=== PATIENT | female | born 1990 | race Caucasian/White ===

== ENCOUNTER 2016-07-24 12:49 | Emergency (ER) | payer BC, OTHER ==
[~2016-07-24] VITALS: Ht 154.9 cm; Wt 66.5 kg
[2016-07-24 12:53] VITALS: Ht 154.9 cm; Wt 66.5 kg
[2016-07-24] MEDS ORDERED: ALBU18002 INH (13:01)
[2016-07-24] MEDS ORDERED: [UNRECOGNIZED DRUG - REMARK] (13:01)
[2016-07-24] MEDS ORDERED: SODIUM CHLORIDE 0.9% 1000ML 500 ML IV STA (13:41)
--- NOTE | 2016-07-24 13:43 | EMERGENCY ROOM VISIT NOTE ---
History Report prepared by Joana: Alex Quispe Under the Supervision of: Dr. Nolberto Barobza M.D. First contact with patient: 13:34 Chief Complaint: ILLNESS Stated Complaint: ARM/HANDS/FINGERS TINGLING,CHEST PAIN History of Present Illness The patient is a 25 year old female who presents to the Emergency Room with complaints constant numbness in her bilateral hands. She rates her numbness as moderate in severity. She states that it worsens the more she uses her hands. A couple of hours ago, the patient was at work when her symptoms began. She was putting items away when she noticed the numbness. She is also having pain down each arm as well. She states that the symptoms are worse on the left than the right. She is experiencing right sided neck pain. This has never happened to her before. She notes that she was fine last night when she went to bed. She denies any leg or feet numbness. She denies any recent trauma or history of neck injury. She has a history of Sciatica in her left leg. She was placed on a muscle relaxer last month for her Sciatica as well. She denies any chance for . Source of History: patient Onset: a couple of hour ago Position: hand (bilateral) Symptom Intensity: moderate Quality: numbness Timing: constant Modifying Factors (Worsening): movement Associated Symptoms: + neck pain Note: She is experiencing tingling in both arms and hands as well. She denies any symptoms in her lower extremities. Review of Systems See HPI for pertinent positives & negatives. A total of 10 systems reviewed and were otherwise negative. Past Medical & Surgical Medical Problems: (1) Asthma, Unspecified (2) Esophageal Reflux Surgical Problems: (1) No significant past surgical history Family History Cancer Diabetes mellitus Hypertension Kidney disease Kidney stones Social History Smoking Status: Never Smoker Alcohol Use: occasionally Drug Use: none Marital Status: single Housing Status: lives with family Occupation Status: employed Current/Historical Medications Scheduled PRN Albuterol Sulfate (Proair Respiclick), 1 PUFF INH Q4 PRN for SOB/Wheezing Miscellaneous Medications [Unk Muscle Spasm Med] Allergies Coded Allergies: No Known Allergies (Unverified , 07/24/16) Physical Exam Vital Signs Date Time Temp Pulse Resp B/P Pulse Ox O2 Delivery O2 Flow Rate FiO2 07/24/16 18:04 81 18 101/68 97 07/24/16 16:49 77 18 117/78 95 Room Air 07/24/16 14:30 36.8 80 117/53 99 07/24/16 12:53 36.9 90 18 115/75 98 Room Air Physical Exam GENERAL: Patient is in no acute distress. HEENT: No acute trauma, normocephalic atraumatic, mucous membranes moist, no nasal congestion, no scleral icterus. NECK: No stridor, no adenopathy, no meningismus, trachea is midline. Pain with bending of the neck to the left and right. LUNGS: Clear to auscultation bilaterally, no wheeze, no rhonchi, breath sounds equal. HEART: Without murmurs gallops or rubs, regular rate and rhythm. ABDOMEN: Soft, nontender, bowel sounds positive, no hernias, no peritonitis. EXTREMITIES: No cyanosis or edema, full range of motion of all the joints without pain or difficulty, no signs for acute trauma. NEUROLOGIC: Oriented x 3, no acute motor or sensory deficits, no focal weakness. No pronator drift. No cerebellar dysfunction. SKIN: No rash, no jaundice, no diaphoresis. Medical Decision & Procedures ER Provider Diagnostic Interpretation: Radiology results are stated below per my review and radiologist interpretation: CHEST ONE VIEW PORTABLE HISTORY: Atypical chest pain. EVALUATE ALTERED MENTAL STATUS/WEAKNESS COMPARISON: None. FINDINGS: The lungs are clear. Cardiac silhouette is normal in size. No pleural effusions. No pneumothorax. IMPRESSION: No acute process. Electronically signed by: Kenney Egan M.D. 07/24/2016 2:39 PM Dictated Date/Time: 07/24/2016 2:38 PM CERVICAL SPINE MRI WITH AND WITHOUT CONTRAST HISTORY: Numbness in arms. Weakness. TECHNIQUE: Multiplanar multisequence MRI of the cervical spine was performed both before and after the use of intravenous contrast. COMPARISON STUDY: None. FINDINGS: Straightening of the cervical spine. No fracture or subluxation. Disc spaces are preserved. Prevertebral soft tissues and the C1-C2 interval are intact. The cervical spinal cord is normal in course, caliber, and signal intensity. No abnormal enhancement. No disc herniations. C2-C3: No significant central canal or neural foraminal narrowing. C3-C4: No significant central canal or neural foraminal narrowing. C4-C5: No significant central canal or neural foraminal narrowing. C5-C6: No significant central canal or neural foraminal narrowing. C6-C7: No significant central canal or neural foraminal narrowing. C7-T1: No significant central canal or neural foraminal narrowing. IMPRESSION: Straightening of the cervical spine. Otherwise, normal cervical spine MRI. Electronically signed by: Kenney Egan M.D. 07/24/2016 4:46 PM Dictated Date/Time: 07/24/2016 4:43 PM Brain MRI WITH AND WITHOUT CONTRAST HISTORY: Numbness in arms weak, poss ms or stoke or mass TECHNIQUE: Multiplanar multisequence MRI of the brain was performed both before and after the intravenous administration of contrast. COMPARISON STUDY: None. FINDINGS: There are no areas of restricted diffusion to suggest acute infarction. The midline structures are intact. The paranasal sinuses are clear. The mastoid air cells are clear. The ventricles and sulci are within normal limits for age. There is no mass, hematoma, midline shift. The major vascular flow-voids at the skull base are well maintained. Postcontrast sequences show no areas of abnormal enhancement. IMPRESSION: No acute intracranial abnormality. Electronically signed by: Kenney Egan M.D. 07/24/2016 4:26 PM Dictated Date/Time: 07/24/2016 4:22 PM Laboratory Results 07/24/16 13:50 Red Blood Count 4.73, Mean Corpuscular Volume 87.5, Mean Corpuscular Hemoglobin 30.4, Mean Corpuscular Hemoglobin Concent 34.8, Mean Platelet Volume 9.3, Neutrophils (%) (Auto) 64.9, Lymphocytes (%) (Auto) 28.3, Monocytes (%) (Auto) 5.8, Eosinophils (%) (Auto) 0.7, Basophils (%) (Auto) 0.2, Neutrophils # (Auto) 6.76, Lymphocytes # (Auto) 2.94, Monocytes # (Auto) 0.60, Eosinophils # (Auto) 0.07, Basophils # (Auto) 0.02 07/24/16 13:50 Test 07/24/16 13:50 07/24/16 13:55 White Blood Count 10.40 K/uL (4.8-10.8) Red Blood Count 4.73 M/uL (4.2-5.4) Hemoglobin 14.4 g/dL (12.0-16.0) Hematocrit 41.4 % (37-47) Mean Corpuscular Volume 87.5 fL (80-100) Mean Corpuscular Hemoglobin 30.4 pg (25-34) Mean Corpuscular Hemoglobin Concent 34.8 g/dl (32-36) Platelet Count 321 K/uL (130-400) Mean Platelet Volume 9.3 fL (7.4-10.4) Neutrophils (%) (Auto) 64.9 % Lymphocytes (%) (Auto) 28.3 % Monocytes (%) (Auto) 5.8 % Eosinophils (%) (Auto) 0.7 % Basophils (%) (Auto) 0.2 % Neutrophils # (Auto) 6.76 K/uL (1.4-6.5) Lymphocytes # (Auto) 2.94 K/uL (1.2-3.4) Monocytes # (Auto) 0.60 K/uL (0.11-0.59) Eosinophils # (Auto) 0.07 K/uL (0-0.5) Basophils # (Auto) 0.02 K/uL (0-0.2) RDW Standard Deviation 40.8 fL (36.4-46.3) RDW Coefficient of Variation 12.7 % (11.5-14.5) Immature Granulocyte % (Auto) 0.1 % Immature Granulocyte # (Auto) 0.01 K/uL (0.00-0.02) Anion Gap 5.0 mmol/L (3-11) Est Creatinine Clear Calc Drug Dose 113.4 ml/min Estimated GFR () 141.0 Estimated GFR (Non- 121.7 BUN/Creatinine Ratio 21.3 (10-20) Calcium Level 8.9 mg/dl (8.5-10.1) Magnesium Level 2.4 mg/dl (1.8-2.4) Total Bilirubin 0.5 mg/dl (0.2-1) Aspartate Amino Transf (AST/SGOT) 12 U/L (15-37) Alanine Aminotransferase (ALT/SGPT) 29 U/L (12-78) Alkaline Phosphatase 45 U/L (45-117) Total Protein 8.0 gm/dl (6.4-8.2) Albumin 4.2 gm/dl (3.4-5.0) Globulin 3.8 gm/dl (2.5-4.0) Albumin/Globulin Ratio 1.1 (0.9-2) Thyroid Stimulating Hormone (TSH) 0.901 uIu/ml (0.300-4.500) Lyme Disease IgG Antibody NEG (NEG) Lyme Disease IgM Antibody NEG (NEG) Urine Color YELLOW Urine Appearance CLEAR (CLEAR) Urine pH 6.5 (4.5-7.5) Urine Specific [place] 1.010 (1.000-1.030) Urine Protein NEG (NEG) Urine Glucose (UA) NEG (NEG) Urine Ketones NEG (NEG) Urine Occult Blood 1+ (NEG) Urine Nitrite NEG (NEG) Urine Bilirubin NEG (NEG) Urine Urobilinogen NEG (NEG) Urine Leukocyte Esterase NEG (NEG) Urine WBC (Auto) 1-5 /hpf (0-5) Urine RBC (Auto) 5-10 /hpf (0-4) Urine Hyaline Casts (Auto) 0 /lpf (0-5) Urine Epithelial Cells (Auto) >30 /lpf (0-5) Urine Bacteria (Auto) NEG (NEG) Urine Test NEG (NEG) Laboratory results reviewed by me. Medications Administered Medications (Trade) Dose Ordered Sig/Casa Route Start Time Stop Time Status Last Admin Dose Admin Sodium Chloride (Nss 1000ml) 500 ml @ 999 mls/hr Q31M STAT IV 07/24/16 13:41 07/24/16 14:11 DC 07/24/16 13:56 999 MLS/HR ECG Indication: chest pain Rate (beats per minute): 67 Rhythm: normal sinus Findings: no acute ischemic change, no ectopy ED Course 1334: The patient was evaluated in room B10. A complete history and physical exam was performed. 1341: Ordered Sodium Chloride 500 ml @ 999 mls/hr IV. 1650: Reevaluated the patient. Discussed results and discharge instructions: She verbalized understanding and agreement. The patient is ready for discharge. Medical Decision Differential diagnosis includes but is not limited to MS, transverse myelitis, intracranial mass, cervical disc disease, thyroid disease, electrolyte imbalance , nerve impingement. There is no leukocytosis or concerning anemia. No significant electrolyte abnormality, kidney failure or hepatitis. The patient appears to be in a euthyroid state. Urinalysis does not show infection. testing is negative. Chest x-ray does not show pneumonia or CHF. Brain MRI does not show any mass, strokelike lesion or MS. Cervical spine MRI does not show any significant disc disease or MS-like lesions. Lyme disease testing was negative. The patient presents with bilateral hand and arm numbness somewhat worse on the left. I suspect she has some nerve impingement. She does have some neck pain on exam. The patient was encouraged to rest, massage and maybe some heat to the neck were encouraged. She can follow with her doctors office. If worsening , she can return. During her ER stay, she received IV saline, she seems to be resting comfortably. Impression Primary Impression: Bilateral arm numbness Scribe Attestation The scribe's documentation has been prepared under my direction and personally reviewed by me in its entirety. I confirm that the note above accurately reflects all work, treatment, procedures, and medical decision making performed by me. Departure Information Dispostion Home / Self-Care Referrals Rikki Cain M.D. (PCP) Forms HOME CARE DOCUMENTATION FORM, IMPORTANT VISIT INFORMATION Patient Instructions My [facility] Additional Instructions massage, rest see jodi kasper for a recheck later this week avoid heavy lifting motrin and or tylenol for pain call here in 1 day for your lyme testing results---[phone] imaging and lab testing today was all ok
[2016-07-24 14:09] LABS: BASO % 0.2 %; BASO ABS # 0.02 K/uL (0-0.2); COMPLETE YES; EOS % 0.7 %; HEMATOCRIT 41.4 % (37-47); IG% 0.1 %; LYMPH % 28.3 %; LYMPH ABS # 2.94 K/uL (1.2-3.4); MEAN CELL VOLUME 87.5 fL (80-100); MEAN CORPUSCULAR HEMOGLOBIN 30.4 pg (25-34); MEAN CORPUSCULAR HGB CONC 34.8 g/dl (32-36); MEAN PLATELET VOLUME 9.3 fL (7.4-10.4); MONO % 5.8 %; NEUT % 64.9 %; PLATELET COUNT 321 K/uL (130-400); RED BLOOD COUNT 4.73 M/uL (4.2-5.4)
[2016-07-24 14:13] LABS: URINE APPEARANCE CLEAR (CLEAR); URINE BILIRUBIN NEG (NEG); URINE COLOR YELLOW; URINE EPITHELIAL CELL AUTO >30 /lpf (0-5); URINE NITRITE NEG (NEG); URINE PH 6.5 (4.5-7.5); UROBILINOGEN NEG (NEG); ZZUR CULT IF INDIC CLEAN CATCH NO
[2016-07-24 14:14] LABS: MANUAL MICROSCOPIC REQUIRED? NO; REVIEW REQ? NO
[2016-07-24 14:28] LABS: BUN/CREATININE RATIO 21.3 (10-20); CALCIUM 8.9 mg/dl (8.5-10.1); CREATININE 0.65 mg/dl (0.60-1.20); MAGNESIUM 2.4 mg/dl (1.8-2.4)
[2016-07-24 14:30] VITALS: TEMP 36.8
[2016-07-24 14:38] LABS: ALB/GLOB RATIO 1.1 (0.9-2); THYROID STIMULATING HORMONE 0.901 uIu/ml (0.300-4.500)
--- NOTE | 2016-07-24 14:41 | DIAGNOSTIC IMAGING REPORT ---
CHEST ONE VIEW PORTABLE HISTORY: Atypical chest pain. EVALUATE ALTERED MENTAL STATUS/WEAKNESS COMPARISON: None. FINDINGS: The lungs are clear. Cardiac silhouette is normal in size. No pleural effusions. No pneumothorax. IMPRESSION: No acute process. Electronically signed by: Kenney Egan M.D. 07/24/2016 2:39 PM Dictated Date/Time: 07/24/2016 2:38 PM
--- NOTE | 2016-07-24 16:29 | DIAGNOSTIC IMAGING REPORT ---
Brain MRI WITH AND WITHOUT CONTRAST HISTORY: Numbness in arms weak, poss ms or stoke or mass TECHNIQUE: Multiplanar multisequence MRI of the brain was performed both before and after the intravenous administration of contrast. COMPARISON STUDY: None. FINDINGS: There are no areas of restricted diffusion to suggest acute infarction. The midline structures are intact. The paranasal sinuses are clear. The mastoid air cells are clear. The ventricles and sulci are within normal limits for age. There is no mass, hematoma, midline shift. The major vascular flow-voids at the skull base are well maintained. Postcontrast sequences show no areas of abnormal enhancement. IMPRESSION: No acute intracranial abnormality. Electronically signed by: Kenney Egan M.D. 07/24/2016 4:26 PM Dictated Date/Time: 07/24/2016 4:22 PM
--- NOTE | 2016-07-24 16:49 | DIAGNOSTIC IMAGING REPORT ---
CERVICAL SPINE MRI WITH AND WITHOUT CONTRAST HISTORY: Numbness in arms. Weakness. TECHNIQUE: Multiplanar multisequence MRI of the cervical spine was performed both before and after the use of intravenous contrast. COMPARISON STUDY: None. FINDINGS: Straightening of the cervical spine. No fracture or subluxation. Disc spaces are preserved. Prevertebral soft tissues and the C1-C2 interval are intact. The cervical spinal cord is normal in course, caliber, and signal intensity. No abnormal enhancement. No disc herniations. C2-C3: No significant central canal or neural foraminal narrowing. C3-C4: No significant central canal or neural foraminal narrowing. C4-C5: No significant central canal or neural foraminal narrowing. C5-C6: No significant central canal or neural foraminal narrowing. C6-C7: No significant central canal or neural foraminal narrowing. C7-T1: No significant central canal or neural foraminal narrowing. IMPRESSION: Straightening of the cervical spine. Otherwise, normal cervical spine MRI. Electronically signed by: Kenney Egan M.D. 07/24/2016 4:46 PM Dictated Date/Time: 07/24/2016 4:43 PM
[2016-07-24 18:01] LABS: LYME DISEASE AB IGG NEG (NEG); LYME DISEASE AB IGM NEG (NEG)
[2016-07-24 18:04] VITALS: BP 101/68; PULSE 81; O2SAT 97
[2017-01-13] MEDS ORDERED: PRENTAB65 PO (13:03)
== END 2016-07-24 18:05 | disposition home or self-care (01) ==
LOC: C.EDB 12:50
DX: R20.0 Anesthesia of skin (principal); M79.601 Pain in right arm; M79.602 Pain in left arm; M54.2 Cervicalgia; J45.909 Unspecified asthma, uncomplicated; Z87.19 Personal history of other diseases of the digestive system; Z82.49 Family history of ischemic heart disease and other diseases of the circulatory system; Z84.1 Family history of disorders of kidney and ureter; Z83.3 Family history of diabetes mellitus

== ENCOUNTER 2016-10-16 12:35 | Emergency (ER) | payer BC ==
[~2016-10-16] VITALS: Ht 154.9 cm; Wt 69.8 kg
[~2016-10-16 12:35] MED LIST: ALBU18002 INH; [UNRECOGNIZED DRUG - REMARK]
[2016-10-16 12:44] VITALS: TEMP 36.6; Ht 154.9 cm; Wt 69.8 kg
[2016-10-16] MEDS ORDERED: PRENTAB65 PO (13:03)
[2016-10-16 13:17] LABS: URINE APPEARANCE CLEAR (CLEAR); URINE BILIRUBIN NEG (NEG); URINE COLOR YELLOW; URINE EPITHELIAL CELL AUTO >30 /lpf (0-5); URINE NITRITE NEG (NEG); URINE PH 6.5 (4.5-7.5); URINE SPECIFIC GRAVITY 1.024 (1.000-1.030); UROBILINOGEN NEG (NEG); ZZUR CULT IF INDIC CLEAN CATCH YES
[2016-10-16 13:18] LABS: MANUAL MICROSCOPIC REQUIRED? NO; REVIEW REQ? NO
[2016-10-16 13:32] LABS: BASO % 0.1 %; BASO ABS # 0.01 K/uL (0-0.2); COMPLETE YES; EOS % 0.6 %; HEMATOCRIT 35.4 % (37-47); IG% 0.2 %; LYMPH % 19.5 %; LYMPH ABS # 2.46 K/uL (1.2-3.4); MEAN CELL VOLUME 85.3 fL (80-100); MEAN CORPUSCULAR HEMOGLOBIN 29.6 pg (25-34); MEAN CORPUSCULAR HGB CONC 34.7 g/dl (32-36); MEAN PLATELET VOLUME 8.9 fL (7.4-10.4); NEUT % 74.6 %; PLATELET COUNT 301 K/uL (130-400); RED BLOOD COUNT 4.15 M/uL (4.2-5.4); WHITE BLOOD COUNT 12.63 K/uL (4.8-10.8)
[2016-10-16 13:51] LABS: ALT/SGPT 24 U/L (12-78); AST/SGOT 13 U/L (15-37); BLOOD UREA NITROGEN 7 mg/dl (7-18); BUN/CREATININE RATIO 17.1 (10-20); CALCIUM 8.4 mg/dl (8.5-10.1); CARBON DIOXIDE 26 mmol/L (21-32); CHLORIDE 105 mmol/L (98-107); CREATININE 0.42 mg/dl (0.60-1.20); GLUCOSE 81 mg/dl (70-99); POTASSIUM 3.6 mmol/L (3.5-5.1); SODIUM 139 mmol/L (136-145)
[2016-10-16] MEDS ORDERED: SODIUM CHLORIDE 0.9% 1000ML 1,000 ML IV STA (13:51)
[2016-10-16] MEDS ORDERED: ONDANSETRON INJ 2 MG/ML 2 ML VIAL IV STA (13:53)
[2016-10-16 13:54] LABS: ALB/GLOB RATIO 0.9 (0.9-2); ALKALINE PHOSPHATASE 40 U/L (45-117)
--- NOTE | 2016-10-16 14:05 | EMERGENCY ROOM VISIT NOTE ---
History Report prepared by Huberiblynette: Dacia Severino Under the Supervision of: Dr. Vitor Ovalles D.O. First contact with patient: 13:47 Chief Complaint: VOMITING Stated Complaint: VOMITING BILE,SOME BLOOD Nursing Triage Summary: patient to ed via triage for abdominal pain, vomiting, states "this morning I started throwing up bile, I have a sharp pain in my stomach when i stand up sometimes. I'm , not sure how far along." History of Present Illness The patient is a 26 year old female who presents to the Emergency Room with complaints of intermittent vomiting beginning this morning. The patient states that she woke up this morning with constant nausea and had 3 episodes of vomiting. She reports that the vomit had blood and bile in it during the 3 hours ago. She notes that she is and found out about the 1 month ago and has her first doctors appointment later this week. The patient states that she only has bowel movements once or twice a month. She notes that she is taking prenatals and has been before but the vomiting this morning is different than her previous morning sickness. She denies any abdominal pain and states that the vomiting is not worsened by eating. The patient reports that she has been working 70 hour weeks and had an episode of vaginal bleeding 3 weeks ago that she attributed to her heavy workload. Source of History: patient Onset: this morning Position: other (global) Symptom Intensity: 3 episodes Quality: other (bloody vomit) Timing: intermittent Associated Symptoms: No abdominal pain Note: Pt notes blood and bile in the vomit and complains of constipation. Review of Systems See HPI for pertinent positives & negatives. A total of 10 systems reviewed and were otherwise negative. Past Medical & Surgical Medical Problems: (1) Asthma, Unspecified (2) Esophageal Reflux Surgical Problems: (1) No significant past surgical history Family History Cancer Diabetes mellitus Hypertension Kidney disease Kidney stones Social History Smoking Status: Never Smoker Alcohol Use: occasionally Drug Use: none Marital Status: single Housing Status: lives with family Occupation Status: employed Current/Historical Medications Scheduled Multivit-Min W/Fe-Fa (), 1 TAB PO DAILY Allergies Coded Allergies: No Known Allergies (Unverified , 07/24/16) Physical Exam Vital Signs Date Time Temp Pulse Resp B/P (MAP) Pulse Ox O2 Delivery O2 Flow Rate FiO2 10/16/16 13:58 77 16 104/64 98 Room Air 10/16/16 12:44 36.6 85 20 116/80 98 Room Air Physical Exam CONSTITUTIONAL/VITAL SIGNS: Reviewed / noted above. GENERAL: Non-toxic in appearance. INTEGUMENTARY: Warm, dry, and Ramos. HEAD: Normocephalic. EYES: without scleral icterus or trauma. ENT/OROPHARYNX: clear and moist. LYMPHADENOPATHY/NECK: Is supple without lymphadenopathy or meningismus. RESPIRATORY: Lungs clear and equal. CARDIOVASCULAR: Regular rate and rhythm. GI/ABDOMEN: Soft and nontender. No organomegaly or pulsatile mass. No rebound or guarding. Normal bowel sounds. EXTREMITIES: Warm and well perfused. BACK: No CVA tenderness. NEUROLOGICAL: Intact without focal deficits. PSYCHIATRIC: normal affect. MUSCULOSKELETAL: Normally developed with good muscle tone. Medical Decision & Procedures Laboratory Results 10/16/16 13:10 Red Blood Count 4.15, Mean Corpuscular Volume 85.3, Mean Corpuscular Hemoglobin 29.6, Mean Corpuscular Hemoglobin Concent 34.7, Mean Platelet Volume 8.9, Neutrophils (%) (Auto) 74.6, Lymphocytes (%) (Auto) 19.5, Monocytes (%) (Auto) 5.0, Eosinophils (%) (Auto) 0.6, Basophils (%) (Auto) 0.1, Neutrophils # (Auto) 9.43, Lymphocytes # (Auto) 2.46, Monocytes # (Auto) 0.63, Eosinophils # (Auto) 0.07, Basophils # (Auto) 0.01 10/16/16 13:10 Test 10/16/16 13:00 10/16/16 13:10 Urine Color YELLOW Urine Appearance CLEAR (CLEAR) Urine pH 6.5 (4.5-7.5) Urine Specific [place] 1.024 (1.000-1.030) Urine Protein NEG (NEG) Urine Glucose (UA) NEG (NEG) Urine Ketones NEG (NEG) Urine Occult Blood 1+ (NEG) Urine Nitrite NEG (NEG) Urine Bilirubin NEG (NEG) Urine Urobilinogen NEG (NEG) Urine Leukocyte Esterase NEG (NEG) Urine WBC (Auto) 1-5 /hpf (0-5) Urine RBC (Auto) 5-10 /hpf (0-4) Urine Hyaline Casts (Auto) 1-5 /lpf (0-5) Urine Epithelial Cells (Auto) >30 /lpf (0-5) Urine Bacteria (Auto) 1+ (NEG) White Blood Count 12.63 K/uL (4.8-10.8) Red Blood Count 4.15 M/uL (4.2-5.4) Hemoglobin 12.3 g/dL (12.0-16.0) Hematocrit 35.4 % (37-47) Mean Corpuscular Volume 85.3 fL (80-100) Mean Corpuscular Hemoglobin 29.6 pg (25-34) Mean Corpuscular Hemoglobin Concent 34.7 g/dl (32-36) Platelet Count 301 K/uL (130-400) Mean Platelet Volume 8.9 fL (7.4-10.4) Neutrophils (%) (Auto) 74.6 % Lymphocytes (%) (Auto) 19.5 % Monocytes (%) (Auto) 5.0 % Eosinophils (%) (Auto) 0.6 % Basophils (%) (Auto) 0.1 % Neutrophils # (Auto) 9.43 K/uL (1.4-6.5) Lymphocytes # (Auto) 2.46 K/uL (1.2-3.4) Monocytes # (Auto) 0.63 K/uL (0.11-0.59) Eosinophils # (Auto) 0.07 K/uL (0-0.5) Basophils # (Auto) 0.01 K/uL (0-0.2) RDW Standard Deviation 38.8 fL (36.4-46.3) RDW Coefficient of Variation 12.5 % (11.5-14.5) Immature Granulocyte % (Auto) 0.2 % Immature Granulocyte # (Auto) 0.03 K/uL (0.00-0.02) Anion Gap 8.0 mmol/L (3-11) Est Creatinine Clear Calc Drug Dose 178.1 ml/min Estimated GFR () > 150.0 Estimated GFR (Non- 139.5 BUN/Creatinine Ratio 17.1 (10-20) Calcium Level 8.4 mg/dl (8.5-10.1) Total Bilirubin 0.3 mg/dl (0.2-1) Aspartate Amino Transf (AST/SGOT) 13 U/L (15-37) Alanine Aminotransferase (ALT/SGPT) 24 U/L (12-78) Alkaline Phosphatase 40 U/L (45-117) Total Protein 6.6 gm/dl (6.4-8.2) Albumin 3.1 gm/dl (3.4-5.0) Globulin 3.5 gm/dl (2.5-4.0) Albumin/Globulin Ratio 0.9 (0.9-2) Lipase 178 U/L (73-393) Laboratory results as stated above per my review. Medications Administered Medications (Trade) Dose Ordered Sig/Casa Route Start Time Stop Time Status Last Admin Dose Admin Sodium Chloride 1,000 ml @ 999 mls/hr Q1H1M STAT IV 10/16/16 13:51 10/16/16 14:51 10/16/16 13:57 999 MLS/HR Ondansetron HCl (Zofran Inj) 4 mg NOW STAT IV 10/16/16 13:53 10/16/16 13:54 DC 10/16/16 13:57 4 MG ED Course 1347: Previous medical records were reviewed. The patient was evaluated in room A11B. A complete history and physical examination was performed. 1351: Sodium Chloride 1000 ml @ 999 mls/hr IV, Zofran Inj 4mg IV. 1405: On reevaluation, the patient is doing well. I discussed the results and findings with the patient. She verbalized agreement of the treatment plan. The patient was discharged home. Medical Decision Differential diagnosis: Etiologies such as gastroenteritis, food borne illness, infections, appendicitis , diverticulitis, inflammatory bowel disease, obstruction, GI bleed, biliary pathology, as well as others were entertained. Medication Reconciliation: I attest that I have personally reviewed the patient' s current medication list. Blood pressure Screening: Patient was found to have normal blood pressure on screening and does not require follow-up. This is a 26-year-old female who presents to the ED with a chief complaint of nausea and vomiting. The patient is in her first trimester . She states that she developed vomiting 3 this morning. There was a little blood in her vomit. She has nausea now. It seems to be a little bit better than it was earlier. The patient denies any abdominal pain. She denies any abnormal vaginal discharge or any vaginal bleeding. She denies any cramping. The patient is a G 3P2. She has her first OB appointment this week. Her physical exam was unremarkable. Abdomen was soft and nontender. Vital signs are stable. Blood work was unremarkable including a CBC, complete metabolic panel, lipase. Patient was given IV fluids. She is given IV Zofran. She was told results. She is felt to be stable for discharge. Impression Primary Impression: Vomiting Additional Impression: First trimester Scribe Attestation The scribe's documentation has been prepared under my direction and personally reviewed by me in its entirety. I confirm that the note above accurately reflects all work, treatment, procedures, and medical decision making performed by me. Departure Information Dispostion Home / Self-Care Referrals Rikki Cain M.D. (PCP) Forms HOME CARE DOCUMENTATION FORM, IMPORTANT VISIT INFORMATION Patient Instructions My [facility] Additional Instructions Follow-up with your doctor for further care and evaluation in 1-2 days. Return to the emergency department for worsening or new symptoms or any concerns. You have been examined and treated today on an emergency basis only. This is not a substitute for, or an effort to provide, complete comprehensive medical care. It is impossible to recognize and treat all injuries or illnesses in a single emergency department visit. It is therefore important that you follow up closely with your doctor. Call as soon as possible for an appointment. Problem Qualifiers
[2016-10-16 14:52] VITALS: BP 99/57; PULSE 81; O2SAT 98
== END 2016-10-16 14:54 | disposition home or self-care (01) ==
LOC: C.EDB 12:36 → C.EDA 14:54
DX: O21.9 Vomiting of pregnancy, unspecified (principal); O99.511 Diseases of the respiratory system complicating pregnancy, first trimester; J45.909 Unspecified asthma, uncomplicated; O99.611 Diseases of the digestive system complicating pregnancy, first trimester; K21.9 Gastro-esophageal reflux disease without esophagitis; Z3A.00 Weeks of gestation of pregnancy not specified; Z80.9 Family history of malignant neoplasm, unspecified; Z83.3 Family history of diabetes mellitus; Z82.49 Family history of ischemic heart disease and other diseases of the circulatory system; Z84.1 Family history of disorders of kidney and ureter

== ENCOUNTER 2017-01-13 17:00 | Emergency (ER) | payer BC ==
[~2017-01-13] VITALS: Ht 152.4 cm; Wt 79.0 kg
[~2017-01-13 17:00] MED LIST changes: -ALBU18002 INH; +PRENTAB65 PO; -[UNRECOGNIZED DRUG - REMARK]
[2017-01-13 17:03] VITALS: TEMP 37.1; Ht 152.4 cm; Wt 79.0 kg
--- NOTE | 2017-01-13 17:18 | EMERGENCY ROOM VISIT NOTE ---
History Report prepared by Huberiblynette: Teetee Flores Under the Supervision of: Dr. Nolberto Barboza M.D. First contact with patient: 17:06 Chief Complaint: RAPID HEART RATE Stated Complaint: HEART RACING, EXHAUSTION History of Present Illness The patient is a 26 year old female who presents to the Emergency Room with complaints of a persistent rapid heart rate. She reports the past 1.5 months, she has experienced exhaustion "without doing anything". She also consistently feels like her heart is racing and like she "just ran a marathon". She has experienced intermittent chest pain as well. She admits to a history of anxiety and states she is unsure if her symptoms are related. When she experiences the rapid heart rate, she also occasionally feels nauseous. She has not vomited. The patient denies any recent fevers or diarrhea. She notes she is currently 23 weeks . This is her 3rd and she has 2 children at home. She denies any personal or family history of PE's or DVT. She denies any recent car or plane travel. She does admit to some intermittent left leg pain. The patient has never experienced similar symptoms like this before. She admits her legs do get swollen, especially if she is on them a lot during the day. Source of History: patient Onset: 1.5 months RAIL [employer] Position: chest Timing: other (persistent) Associated Symptoms: + chest pain, + nausea, + fatigue, No fevers, No vomiting, No diarrhea Review of Systems See HPI for pertinent positives & negatives. A total of 10 systems reviewed and were otherwise negative. Past Medical & Surgical Medical Problems: (1) Asthma, Unspecified (2) Esophageal Reflux Surgical Problems: (1) No significant past surgical history Family History Cancer Diabetes mellitus Hypertension Kidney disease Kidney stones Social History Smoking Status: Never Smoker Alcohol Use: occasionally Drug Use: none Marital Status: single, in relationship Housing Status: lives with family Occupation Status: employed Current/Historical Medications Scheduled Multivit-Min W/Fe-Fa (), 1 TAB PO DAILY Allergies Coded Allergies: No Known Allergies (Unverified , 07/24/16) Physical Exam Vital Signs Date Time Temp Pulse Resp B/P (MAP) Pulse Ox O2 Delivery O2 Flow Rate FiO2 01/13/17 19:57 93 16 119/79 97 01/13/17 18:33 107 20 141/77 99 01/13/17 17:32 101 01/13/17 17:14 100 22 141/77 93 Room Air 01/13/17 17:03 37.1 106 18 104/70 98 Room Air Physical Exam GENERAL: Patient is in no acute distress. HEENT: No acute trauma, normocephalic atraumatic, mucous membranes moist, no nasal congestion, no scleral icterus. NECK: No stridor, no adenopathy, no meningismus, trachea is midline. LUNGS: Clear to auscultation bilaterally, no wheeze, no rhonchi, breath sounds equal. HEART: Subtle systolic murmur, regular rate and rhythm. ABDOMEN: Soft, nontender, bowel sounds positive, no hernias, no peritonitis. EXTREMITIES: No cyanosis or edema, full range of motion of all the joints without pain or difficulty, no signs for acute trauma. NEUROLOGIC: Oriented x 3, no acute motor or sensory deficits, no focal weakness. SKIN: No rash, no jaundice, no diaphoresis. Medical Decision & Procedures ER Provider Diagnostic Interpretation: Radiology results as stated below per my review and radiologist interpretation: ULTRASOUND BILATERAL LOWER EXTREMITY VENOUS CLINICAL HISTORY: Lower extremity edema. Tachycardia. . COMPARISON STUDY: No priors. TECHNIQUE: Real-time, grayscale, and color Doppler sonography of the deep veins of the right and left lower extremity was performed from the inguinal crease to the calf. Compression and augmentation were utilized. FINDINGS: There is no sonographic evidence of deep venous thrombosis identified in the right or left lower extremity. The common femoral, superficial femoral, and popliteal veins are patent and normally compressible bilaterally. The greater saphenous vein and the profunda femoris vein at the junction with the common femoral vein are clear in both legs. The visualized calf veins are patent bilaterally. IMPRESSION: There is no sonographic evidence of deep venous thrombosis identified in the right or left lower extremity. Electronically signed by: Nolberto Qureshi M.D. 01/13/2017 7:23 PM Laboratory Results 01/13/17 17:30 Red Blood Count 4.07, Mean Corpuscular Volume 86.7, Mean Corpuscular Hemoglobin 28.3, Mean Corpuscular Hemoglobin Concent 32.6, Mean Platelet Volume 8.9, Neutrophils (%) (Auto) 73.2, Lymphocytes (%) (Auto) 20.1, Monocytes (%) (Auto) 5.4, Eosinophils (%) (Auto) 0.7, Basophils (%) (Auto) 0.1, Neutrophils # (Auto) 9.23, Lymphocytes # (Auto) 2.54, Monocytes # (Auto) 0.68, Eosinophils # (Auto) 0.09, Basophils # (Auto) 0.01 01/13/17 17:30 Test 01/13/17 00:00 01/13/17 17:30 Urine Color YELLOW Urine Appearance CLEAR (CLEAR) Urine pH 6.0 (4.5-7.5) Urine Specific [place] 1.024 (1.000-1.030) Urine Protein NEG (NEG) Urine Glucose (UA) NEG (NEG) Urine Ketones NEG (NEG) Urine Occult Blood 1+ (NEG) Urine Nitrite NEG (NEG) Urine Bilirubin NEG (NEG) Urine Urobilinogen NEG (NEG) Urine Leukocyte Esterase NEG (NEG) Urine WBC (Auto) 1-5 /hpf (0-5) Urine RBC (Auto) 0-4 /hpf (0-4) Urine Hyaline Casts (Auto) 1-5 /lpf (0-5) Urine Epithelial Cells (Auto) 10-20 /lpf (0-5) Urine Bacteria (Auto) NEG (NEG) White Blood Count 12.61 K/uL (4.8-10.8) Red Blood Count 4.07 M/uL (4.2-5.4) Hemoglobin 11.5 g/dL (12.0-16.0) Hematocrit 35.3 % (37-47) Mean Corpuscular Volume 86.7 fL (80-100) Mean Corpuscular Hemoglobin 28.3 pg (25-34) Mean Corpuscular Hemoglobin Concent 32.6 g/dl (32-36) Platelet Count 265 K/uL (130-400) Mean Platelet Volume 8.9 fL (7.4-10.4) Neutrophils (%) (Auto) 73.2 % Lymphocytes (%) (Auto) 20.1 % Monocytes (%) (Auto) 5.4 % Eosinophils (%) (Auto) 0.7 % Basophils (%) (Auto) 0.1 % Neutrophils # (Auto) 9.23 K/uL (1.4-6.5) Lymphocytes # (Auto) 2.54 K/uL (1.2-3.4) Monocytes # (Auto) 0.68 K/uL (0.11-0.59) Eosinophils # (Auto) 0.09 K/uL (0-0.5) Basophils # (Auto) 0.01 K/uL (0-0.2) RDW Standard Deviation 41.5 fL (36.4-46.3) RDW Coefficient of Variation 13.0 % (11.5-14.5) Immature Granulocyte % (Auto) 0.5 % Immature Granulocyte # (Auto) 0.06 K/uL (0.00-0.02) Anion Gap 8.0 mmol/L (3-11) Est Creatinine Clear Calc Drug Dose 155.8 ml/min Estimated GFR () > 150.0 Estimated GFR (Non- 131.7 BUN/Creatinine Ratio 15.2 (10-20) Calcium Level 8.5 mg/dl (8.5-10.1) Magnesium Level 1.8 mg/dl (1.8-2.4) Total Bilirubin 0.2 mg/dl (0.2-1) Aspartate Amino Transf (AST/SGOT) 12 U/L (15-37) Alanine Aminotransferase (ALT/SGPT) 14 U/L (12-78) Alkaline Phosphatase 46 U/L (45-117) Troponin I < 0.015 ng/ml (0-0.045) Total Protein 6.5 gm/dl (6.4-8.2) Albumin 2.5 gm/dl (3.4-5.0) Globulin 4.0 gm/dl (2.5-4.0) Albumin/Globulin Ratio 0.6 (0.9-2) Thyroid Stimulating Hormone (TSH) 0.872 uIu/ml (0.300-4.500) Laboratory results reviewed by me. ECG Indication: tachycardia Rate (beats per minute): 89 Rhythm: normal sinus Findings: no acute ischemic change, no ectopy ED Course 1707: The patient was evaluated in room A10. A complete history and physical exam was performed. 1950: I reevaluated the patient. She is feeling well and resting comfortably. I discussed her results and discharge instructions and she verbalized complete understanding and agreement. Medical Decision The differential diagnoses include , anxiety, dehydration, electrolyte imbalance, thyroid disorder, dysrhythmia, PE and anemia. There is a mild leukocytosis, this is likely consistent with her . No worrisome anemia. No significant electrolyte abnormality, kidney failure or hepatitis. The patient appears to be in a euthyroid state. EKG shows a normal sinus rhythm, no dysrhythmia or acute ischemia. Cardiac enzyme testing times one is not consistent with acute cardiac injury. Bilateral lower extremity ultrasound does not reveal evidence for DVT. On exam, she was nontoxic, she was not hypoxic. She was in no significant distress. The patient's workup is benign. I do not believe that she has suffered a pulmonary embolus. She has been reassured by her negative tests. Patient is being discharged to rest. Hydration was encouraged. Her palpitations have been ongoing for a month and are possibly related to her . Certainly, there may be an anxiety component here as well. If things are worsening, she was encouraged to return. She will follow with her doctors office and with OB. Medication Reconcilliation Current Medication List: was personally reviewed by me Blood Pressure Screening Patient's blood pressure: Elevated blood pressure Blood pressure disposition: Elevated BP felt to be situational Impression Primary Impression: Palpitations Additional Impression: Scribe Attestation The scribe's documentation has been prepared under my direction and personally reviewed by me in its entirety. I confirm that the note above accurately reflects all work, treatment, procedures, and medical decision making performed by me. Departure Information Dispostion Home / Self-Care Referrals No Doctor, Assigned (PCP) Patient Instructions My [facility] Additional Instructions return for any worsening symptoms testing today was all ok follow with ob and your jodi md Problem Qualifiers
[2017-01-13 17:48] LABS: BASO % 0.1 %; BASO ABS # 0.01 K/uL (0-0.2); COMPLETE YES; EOS % 0.7 %; HEMATOCRIT 35.3 % (37-47); IG% 0.5 %; LYMPH % 20.1 %; LYMPH ABS # 2.54 K/uL (1.2-3.4); MEAN CELL VOLUME 86.7 fL (80-100); MEAN CORPUSCULAR HEMOGLOBIN 28.3 pg (25-34); MEAN CORPUSCULAR HGB CONC 32.6 g/dl (32-36); MEAN PLATELET VOLUME 8.9 fL (7.4-10.4); MONO % 5.4 %; NEUT % 73.2 %; PLATELET COUNT 265 K/uL (130-400); RED BLOOD COUNT 4.07 M/uL (4.2-5.4); WHITE BLOOD COUNT 12.61 K/uL (4.8-10.8)
[2017-01-13 18:01] LABS: URINE APPEARANCE CLEAR (CLEAR); URINE BILIRUBIN NEG (NEG); URINE COLOR YELLOW; URINE NITRITE NEG (NEG); URINE SPECIFIC GRAVITY 1.024 (1.000-1.030); UROBILINOGEN NEG (NEG); ZZUR CULT IF INDIC CLEAN CATCH NO
[2017-01-13 18:02] LABS: MANUAL MICROSCOPIC REQUIRED? NO; REVIEW REQ? NO
[2017-01-13 18:13] LABS: ALT/SGPT 14 U/L (12-78); BLOOD UREA NITROGEN 8 mg/dl (7-18); BUN/CREATININE RATIO 15.2 (10-20); CALCIUM 8.5 mg/dl (8.5-10.1); CARBON DIOXIDE 25 mmol/L (21-32); CHLORIDE 105 mmol/L (98-107); GLUCOSE 102 mg/dl (70-99); MAGNESIUM 1.8 mg/dl (1.8-2.4); POTASSIUM 3.3 mmol/L (3.5-5.1); SODIUM 138 mmol/L (136-145)
[2017-01-13 18:23] LABS: ALB/GLOB RATIO 0.6 (0.9-2); ALKALINE PHOSPHATASE 46 U/L (45-117); AST/SGOT 12 U/L (15-37); THYROID STIMULATING HORMONE 0.872 uIu/ml (0.300-4.500)
--- NOTE | 2017-01-13 19:25 | DIAGNOSTIC IMAGING REPORT ---
ULTRASOUND BILATERAL LOWER EXTREMITY VENOUS CLINICAL HISTORY: Lower extremity edema. Tachycardia. . COMPARISON STUDY: No priors. TECHNIQUE: Real-time, grayscale, and color Doppler sonography of the deep veins of the right and left lower extremity was performed from the inguinal crease to the calf. Compression and augmentation were utilized. FINDINGS: There is no sonographic evidence of deep venous thrombosis identified in the right or left lower extremity. The common femoral, superficial femoral, and popliteal veins are patent and normally compressible bilaterally. The greater saphenous vein and the profunda femoris vein at the junction with the common femoral vein are clear in both legs. The visualized calf veins are patent bilaterally. IMPRESSION: There is no sonographic evidence of deep venous thrombosis identified in the right or left lower extremity. Electronically signed by: Nolberto Qureshi M.D. 01/13/2017 7:23 PM Dictated Date/Time: 01/13/2017 7:23 PM
[2017-01-13 19:57] VITALS: BP 119/79; PULSE 93; O2SAT 97
== END 2017-01-13 20:00 | disposition home or self-care (01) ==
LOC: C.EDB 17:01 → C.EDA 20:00
DX: R00.0 Tachycardia, unspecified (principal); R07.9 Chest pain, unspecified; O99.343 Other mental disorders complicating pregnancy, third trimester; F41.9 Anxiety disorder, unspecified; R11.0 Nausea; R53.83 Other fatigue; J45.909 Unspecified asthma, uncomplicated; K21.9 Gastro-esophageal reflux disease without esophagitis; Z3A.00 Weeks of gestation of pregnancy not specified; Z82.49 Family history of ischemic heart disease and other diseases of the circulatory system; Z83.3 Family history of diabetes mellitus; Z84.1 Family history of disorders of kidney and ureter

== ENCOUNTER 2017-02-26 00:43 | Emergency (ER) | payer BC ==
[~2017-02-26] VITALS: Ht 154.9 cm; Wt 84.4 kg
[2017-02-26 00:52] VITALS: TEMP 36.7; Ht 154.9 cm; Wt 84.4 kg
[2017-02-26] MEDS ORDERED: ACETAMINOPHEN 500 MG TAB PO STA (01:06)
[2017-02-26] MEDS ORDERED: LIDODERM (LIDOCAINE) PATCH 5% TD STA (01:06)
--- NOTE | 2017-02-26 01:53 | EMERGENCY ROOM VISIT NOTE ---
History Report prepared by Joana: Karla Husain Under the Supervision of: Dr. Alina Toro D.O. First contact with patient: 00:56 Chief Complaint: NECK PAIN Stated Complaint: 29 WKS ; NECK AND SHOULDER PAIN History of Present Illness The patient is a 26 year old female who presents to the Emergency Room with complaints of persistent neck pain starting 3 days ago. The pain started in the middle of the day while she was sitting. The pain goes down into her right shoulder. It worsens with looking up, right, left and down. It also worsens with lying down. The pain does not worsen with movement of her arm. She has tried taking Tylenol, applying warm compresses, and getting a shoulder massage to no significant relief. She denies any recent change in activity or trauma which might have caused her pain. She denies having a new mattress or pillow. She denies any history of neck or shoulder problems. She denies any right arm pain. She is right handed. She denies any dizziness, lightheadedness, numbness, or tingling. She is currently 29 weeks with her 3rd child. She is not having any problems with her . She states she has been feeling the baby moving. Source of History: patient Onset: 3 days ago Position: neck Quality: other (pain) Timing: other (persistent) Modifying Factors (Worsening): other (looking up right left down and lying down) Associated Symptoms: No numbness Note: Pt reports right shoulder pain. Pt denies right arm pain, dizziness, lightheadedness. Review of Systems See HPI for pertinent positives & negatives. A total of 10 systems reviewed and were otherwise negative. Past Medical & Surgical Medical Problems: (1) Asthma, Unspecified (2) Esophageal Reflux Surgical Problems: (1) No significant past surgical history Family History Cancer Diabetes mellitus Hypertension Kidney disease Kidney stones Social History Smoking Status: Never Smoker Alcohol Use: occasionally Drug Use: none Housing Status: lives with family Occupation Status: employed Current/Historical Medications Scheduled Lidocaine (Lidoderm Patch 5%), 1 PATCH TD DAILY Multivit-Min W/Fe-Fa (), 1 TAB PO DAILY Allergies Coded Allergies: No Known Allergies (Unverified , 02/26/17) Physical Exam Vital Signs Date Time Temp Pulse Resp B/P (MAP) Pulse Ox O2 Delivery O2 Flow Rate FiO2 02/26/17 02:17 100 20 120/74 98 02/26/17 00:52 36.7 109 20 123/83 97 Room Air Physical Exam GENERAL: alert, well appearing, well nourished, no distress, non-toxic EYE EXAM: normal conjunctiva, PERRL and EOM's grossly intact OROPHARYNX: no exudate, no erythema, lips, buccal mucosa, and tongue normal and mucous membranes are moist NECK: supple, no nuchal rigidity, no adenopathy, right paraspinal and right trapezius tenderness, mild hypertonicity. No midline tenderness or step off to the cervical or upper thoracic spine. No mastoid tenderness. LUNGS: Clear to auscultation. Normal chest wall mechanics HEART: no murmurs, S1 normal and S2 normal ABDOMEN: abdomen soft, non-tender, normo-active bowel sounds, no masses, no rebound or guarding. BACK: Back is symmetrical on inspection and there is no deformity, no midline tenderness, no CVA tenderness. SKIN: no rashes and no bruising UPPER EXTREMITIES: upper extremities are grossly normal. No bony tenderness at the right shoulder, full ROM, normal strength. LOWER EXTREMITIES: No pitting edema. NEURO EXAM: Normal sensorium, cranial nerves II-XII grossly intact, normal speech, no gross weakness of arms, no gross weakness of legs. Medical Decision & Procedures Medications Administered Medications (Trade) Dose Ordered Sig/Casa Route Start Time Stop Time Status Last Admin Dose Admin Lidocaine (Lidoderm Patch 5%) 1 patch NOW STAT TD 02/26/17 01:06 02/26/17 01:08 DC 02/26/17 01:22 1 PATCH Acetaminophen (Tylenol Tab) 1,000 mg NOW STAT PO 02/26/17 01:06 02/26/17 01:08 DC 02/26/17 01:19 1,000 MG ED Course 0058: The patient was evaluated in room B3B. A complete history and physical exam was performed. 0106: Acetaminophen 1000 mg PO, Lidocaine 1 patch TD. 0143: Upon reevaluation, the patient is feeling better. I discussed the findings and the treatment plan with the patient. She verbalizes agreement and understanding. She was discharged home. Medical Decision Differential diagnosis: cervical strain, muscle spasm, mastoiditis, trauma, cervical radiculopathy. History and physical not consistent with acute nerve impingement, disc herniation, mastoiditis, dissection, cerebellar infarct or bleed, acute intracranial hemorrhage, CVA, deep space infection. Patient most likely with muscle strain. Given , limited medications available for treatment. Lidoderm patch added to patient's regimen of Tylenol. Discussed avoidance of lifting or moving, follow-up as a precaution, symptoms to watch and return for, continued course of [employer] follow-up and vitamins. Patient verbalized understanding was agreeable with plan. Medication Reconcilliation Current Medication List: was personally reviewed by me Blood Pressure Screening Patient's blood pressure: Normal blood pressure Blood pressure disposition: Did not require urgent referral Impression Primary Impression: Neck pain Additional Impression: Musculoskeletal strain Scribe Attestation The scribe's documentation has been prepared under my direction and personally reviewed by me in its entirety. I confirm that the note above accurately reflects all work, treatment, procedures, and medical decision making performed by me. Departure Information Dispostion Home / Self-Care Prescriptions Lidocaine (Lidoderm Patch 5%) 1 Ea Tdsy 1 PATCH TD DAILY, #1 BOX Prov: Alina Toro, DO 02/26/17 Referrals Rikki Cain M.D. (PCP) Patient Instructions My [facility] Additional Instructions Please continue using Tylenol for the pain, he may also use the pain patch. Please stay well-hydrated. Please avoid any increased lifting or change in activity which could exacerbate the pain. If you notice worsening pain, develop headaches, vision changes, dizziness, numbness or tingling, feel your right arm or hand is weaker not working normally, develop fevers, change in hearing, or you have any other new concerns, please return the emergency room. Problem Qualifiers
[2017-02-26] MEDS ORDERED: NF656 TD (02:06)
[2017-02-26 02:17] VITALS: BP 120/74; PULSE 100; O2SAT 98
== END 2017-02-26 02:19 | disposition home or self-care (01) ==
LOC: C.EDB 00:44
DX: O9A.213 Injury, poisoning and certain other consequences of external causes complicating pregnancy, third trimester (principal); S16.1XXA Strain of muscle, fascia and tendon at neck level, initial encounter; X58.XXXA Exposure to other specified factors, initial encounter; Z3A.29 29 weeks gestation of pregnancy; Z80.9 Family history of malignant neoplasm, unspecified; Z83.3 Family history of diabetes mellitus; Z82.49 Family history of ischemic heart disease and other diseases of the circulatory system; Z84.1 Family history of disorders of kidney and ureter

== ENCOUNTER 2017-04-23 18:14 | Emergency (ER) | payer BC, OTHER ==
[~2017-04-23] VITALS: Ht 154.9 cm; Wt 90.7 kg
[~2017-04-23 18:14] MED LIST changes: +NF656 TD
[2017-04-23 18:25] VITALS: TEMP 36.9; Ht 154.9 cm; Wt 90.7 kg
[2017-04-23] MEDS ORDERED: ALBUT/IPRATROP 3MG/0.5MG NEB 3 ML VIAL INH STA ×2 (18:36→20:31)
[2017-04-23] MEDS ORDERED: ACETAMINOPHEN 500 MG TAB PO STA (18:39)
--- NOTE | 2017-04-23 18:56 | DIAGNOSTIC IMAGING REPORT ---
CHEST ONE VIEW PORTABLE HISTORY: 26 years-old Female cough acute cough COMPARISON: Chest radiograph 07/24/2016 TECHNIQUE: Portable AP view of the chest FINDINGS: Cardiomediastinal and hilar silhouettes are within normal limits. There is no pneumothorax, pleural effusion, focal airspace consolidation or overt pulmonary edema. Bones of the chest appear grossly intact. IMPRESSION: No acute process. The above report was generated using voice recognition software. It may contain grammatical, syntax or spelling errors. Electronically signed by: Shan Perry M.D. 04/23/2017 6:55 PM Dictated Date/Time: 04/23/2017 6:54 PM
--- NOTE | 2017-04-23 19:01 | EMERGENCY ROOM VISIT NOTE ---
History Report prepared by Joana: Dima Lay Under the Supervision of: Dr. Sanket Townsend D.O. First contact with patient: 18:31 Chief Complaint: COUGH Stated Complaint: COUGH,WHEEZING, 37 WKS , PAIN IN ABDOMEN Nursing Triage Summary: pt reports sob for approx 1 week worse in last 2 days. cough ,pain left abd. seen by obgyn on for abd pain History of Present Illness The patient is a 26 year old female who presents to the Emergency Room with complaints of a worsening cough beginning a week ago. The patient states she was evaluated at [facility] four days ago and was sent to her [employer]. She reports she was told to try and stick it out because she is . The patient notes she has been trying breathing treatments, but they are not working. She states she started wheezing and developed a pain in her left side. The patient reports she has a history of asthma, but she has not had trouble since she was young. She notes she has been on steroids before. The patient states she has been experiencing diaphoresis and a subjective fever. She reports exertion makes her symptoms worse. The patient notes she is currently on Keflex for a bacterial infection. She states it is her third time being , and she has not had complications before. The patient denies trouble urinating. Source of History: patient Onset: week ago Position: other (global) Quality: other (cough) Timing: worsening Modifying Factors (Worsening): exertion Associated Symptoms: No urinary symptoms Note: Associated symptoms: left sided pain, wheezing Review of Systems See HPI for pertinent positives & negatives. A total of 10 systems reviewed and were otherwise negative. Past Medical & Surgical Medical Problems: (1) Asthma, Unspecified (2) Esophageal Reflux Surgical Problems: (1) No significant past surgical history Family History Cancer Diabetes mellitus Hypertension Kidney disease Kidney stones Social History Smoking Status: Never Smoker Alcohol Use: occasionally Drug Use: none Housing Status: lives with family Occupation Status: employed Current/Historical Medications Scheduled Albuterol Sulf (Proventil 0.083% 2.5MG/3ML), 2.5 MG INH QID Azithromycin (Zithromax), 250 MG PO DAILY Cephalexin Monohydrate (Keflex), 500 MG PO TID Prednisone (Prednisone Tab), 40 MG PO DAILY Multivit-Min W/Fe-Fa (), 1 TAB PO DAILY Ranitidine Hcl (Zantac), 150 MG PO BID Allergies Coded Allergies: No Known Allergies (Unverified , 04/23/17) Physical Exam Vital Signs Date Time Temp Pulse Resp B/P (MAP) Pulse Ox O2 Delivery O2 Flow Rate FiO2 04/23/17 21:51 101 20 132/78 97 04/23/17 20:04 110 20 125/83 96 Room Air 04/23/17 18:25 36.9 104 18 138/94 96 Room Air Physical Exam GENERAL: Patient is awake, alert, and in no acute distress. Patient is resting comfortably and showing mild signs of anxiety but overall comfortable. EYES: The conjunctivae are clear. The pupils are round and reactive. EARS, NOSE, MOUTH AND THROAT: The nose is without any evidence of any deformity. Mucous membranes are moist tongue is midline NECK: The neck is nontender and supple. RESPIRATORY: Diminished breath sounds throughout with moderate expiratory wheezing in all silva. CARDIOVASCULAR: Tachycardic rate and regular rhythm noted there no murmurs rubs or gallops normal S1 normal S2 GASTROINTESTINAL: The abdomen is soft. Bowel sounds are present in all quadrants. Abdomen is nontender. Gravid in appearance with fundal height well above the umbilicus. MUSCULOSKELETAL/EXTREMITIES: There is no evidence of gross deformity full range of motion is noted in the hips and shoulders SKIN: There is no obvious evidence of any rash. There are no petechiae, pallor or cyanosis noted. No calf tenderness. NEUROLOGIC: Patient is awake alert and oriented x3 Medical Decision & Procedures ER Provider Diagnostic Interpretation: X-ray results as stated below per interpretation by me and the radiologist. CHEST ONE VIEW PORTABLE HISTORY: 26 years-old Female cough acute cough COMPARISON: Chest radiograph 07/24/2016 TECHNIQUE: Portable AP view of the chest FINDINGS: Cardiomediastinal and hilar silhouettes are within normal limits. There is no pneumothorax, pleural effusion, focal airspace consolidation or overt pulmonary edema. Bones of the chest appear grossly intact. IMPRESSION: No acute process. The above report was generated using voice recognition software. It may contain grammatical, syntax or spelling errors. Electronically signed by: Shan Perry M.D. 04/23/2017 6:55 PM Dictated Date/Time: 04/23/2017 6:54 PM Laboratory Results Test 1/21/18 20:37 Influenza Type A Antigen Neg for Influ A (NEG) Influenza Type B Antigen Neg for Influ B (NEG) Laboratory results per my review. Medications Administered Medications (Trade) Dose Ordered Sig/Casa Route Start Time Stop Time Status Last Admin Dose Admin Albuterol/ Ipratropium (Duoneb) 3 ml NOW STAT INH 04/23/17 18:36 04/23/17 18:38 DC 04/23/17 18:52 3 ML Prednisone (PredniSONE TAB) 60 mg NOW STAT PO 04/23/17 18:36 04/23/17 18:38 DC 04/23/17 18:52 60 MG Acetaminophen (Tylenol Tab) 1,000 mg NOW STAT PO 04/23/17 18:39 04/23/17 18:40 DC 04/23/17 18:52 1,000 MG Azithromycin (Zithromax Tab) 500 mg NOW ONCE PO 04/23/17 20:45 04/23/17 20:46 DC 04/23/17 20:38 500 MG Albuterol/ Ipratropium (Duoneb) 3 ml NOW STAT INH 04/23/17 20:31 04/23/17 20:32 DC 04/23/17 20:38 3 ML ED Course 1834: The patient was evaluated in room B09. A complete history and physical examination were performed. 1835: Ordered Prednisone 60mg PO, Duoneb 3ml INH 1838: Ordered Acetaminophen 1000mg PO 2027: I reevaluated the patient. She is feeling better. She is going to receive another Duoneb. 2030: Ordered Duoneb 3ml INH 2042: I reevaluated the a patient and discussed current exam findings. 2044: Ordered Azithromycin 500mg PO 2120: Upon reevaluation, the patient is resting comfortably. I discussed the results and treatment plan with the patient. She verbalized agreement of the treatment plan. She was discharged home. Medical Decision Differential diagnosis: Etiologies such as infections, reactive airway disease, pneumonia, pneumothorax , COPD, CHF, cardiac ischemia, pulmonary embolism, musculoskeletal, gastrointestinal, as well as others were entertained. Nursing notes reviewed. The patient is a 26-year-old female who presented to the emergency department for an evaluation of cough. The patient has had a cough with bronchospasm symptoms for approximately one month. She is currently so it sounds as though she is having some difficulty receiving medical care. Her family doctor was uncomfortable doing certain medications because she is currently . She was treated with bronchodilators in the emergency department. She's also given a dose of steroids and antibiotics. At this time I feel her condition is likely consistent with a bronchitis although it is been ongoing for a longer period of time so he may represent an underlying bronchospasm. The patient was encouraged to rest and avoid any strenuous activity. She was also encouraged to continue all medications as prescribed and call her family to schedule a follow-up appointment. Otherwise she was encouraged to return to the emergency department immediately if symptoms change worsen or the need arises. I discussed the patient's laboratory and radiographic studies with her. Impression Primary Impression: Bronchitis Scribe Attestation The scribe's documentation has been prepared under my direction and personally reviewed by me in its entirety. I confirm that the note above accurately reflects all work, treatment, procedures, and medical decision making performed by me. Departure Information Dispostion Home / Self-Care Prescriptions Ranitidine Hcl (ZANTAC) 150 Mg Tab 150 MG PO BID, #30 TAB Prov: Sanket Townsend, DO 04/23/17 Albuterol Sulf (PROVENTIL 0.083% 2.5MG/3ML) 2.5 Mg/3 Ml Nebu 2.5 MG INH QID, #1 BOX Prov: Sanket Townsend, DO 04/23/17 Prednisone (Prednisone Tab) 20 Mg Tab 40 MG PO DAILY, #10 TAB Prov: Sanket Townsend, DO 04/23/17 Azithromycin (Zithromax) 250 Mg Tab 250 MG PO DAILY, #4 TAB Prov: Sanket Townsend, DO 04/23/17 Referrals Rikki Cain M.D. (PCP) Forms HOME CARE DOCUMENTATION FORM, IMPORTANT VISIT INFORMATION Patient Instructions Bronchitis Acute, [facility] Additional Instructions Continue all medications as prescribed. Rest and avoid any strenuous activity. Call your family as well as her [employer] physician to schedule a follow-up appointment. Return to the emergency department if symptoms change worsen or the need arises.
[2017-04-23] MEDS ORDERED: CEPH500C2 PO (19:13)
[2017-04-23] MEDS ORDERED: AZITHROMYCIN 250 MG TAB PO ONE (20:45)
[2017-04-23] MEDS ORDERED: ALBINS/ INH (20:51)
[2017-04-23] MEDS ORDERED: PRED20TA2 PO (20:51)
[2017-04-23] MEDS ORDERED: RANI150T3 PO (20:51)
[2017-04-23] MEDS ORDERED: AZIT250T PO (20:51)
[2017-04-23 20:59] LABS: INFLUENZA B ANTIGEN Neg for Influ B (NEG)
[2017-04-23 21:51] VITALS: BP 132/78; PULSE 101; O2SAT 97
== END 2017-04-23 21:52 | disposition home or self-care (01) ==
LOC: C.EDB 18:16
DX: O99.513 Diseases of the respiratory system complicating pregnancy, third trimester (principal); Z3A.37 37 weeks gestation of pregnancy; J40 Bronchitis, not specified as acute or chronic; K21.9 Gastro-esophageal reflux disease without esophagitis; Z80.9 Family history of malignant neoplasm, unspecified; Z83.3 Family history of diabetes mellitus; Z82.49 Family history of ischemic heart disease and other diseases of the circulatory system; Z84.1 Family history of disorders of kidney and ureter; Z79.899 Other long term (current) drug therapy

== ENCOUNTER 2017-05-03 20:02 | Inpatient (IN) | payer BC, OTHER ==
[~2017-05-03] VITALS: Ht 154.9 cm; Wt 90.5 kg
[~2017-05-03 20:02] MED LIST changes: +ALBINS/ INH; +AZIT250T PO; +CEPH500C2 PO; -NF656 TD; +PRED20TA2 PO; +RANI150T3 PO
[2017-05-03] MEDS ORDERED: LACTATED RINGER'S 1000ML 1,000 ML IV PRN (20:33)
--- NOTE | 2017-05-03 21:03 | Progress Note ---
Progress Note Date of Service May 03, 2017. Progress Note Admit Note 26 F P2002 at 38.5 weeks admitted with SROM clear fluid. Cervix 5/80/-3/ vertex. FHT Cat 1. GBS is negative. Will admit in labor. Anticipate normal delivery.
[2017-05-03] MEDS ORDERED: [UNRECOGNIZED DRUG - OTHER] (21:28)
[2017-05-03] MEDS ORDERED: NYST80OI TOP (21:30)
[2017-05-03] MEDS ORDERED: CLIN1GEL5 TOP (21:31)
[2017-05-03] MEDS ORDERED: ALBU18002 (21:32)
[2017-05-03 21:35] VITALS: Ht 154.9 cm; Wt 90.5 kg
[2017-05-03 21:36] LABS: HEMATOCRIT 36.8 % (37-47); HEMOGLOBIN 12.1 g/dL (12.0-16.0); MEAN CELL VOLUME 82.9 fL (80-100); MEAN CORPUSCULAR HEMOGLOBIN 27.3 pg (25-34); MEAN CORPUSCULAR HGB CONC 32.9 g/dl (32-36); MEAN PLATELET VOLUME 9.2 fL (7.4-10.4); PLATELET COUNT 233 K/uL (130-400); RED CELL DISTRIBUTION WIDTH CV 15.2 % (11.5-14.5); RED CELL DISTRIBUTION WIDTH SD 46.1 fL (36.4-46.3); WHITE BLOOD COUNT 15.67 K/uL (4.8-10.8)
[2017-05-03] MEDS ORDERED: BUPIVACAINE 0.25% 30 ML VIAL ONE (22:31)
[2017-05-03] MEDS ORDERED: EpHEDrine SULFATE INJ 50 MG/ML AMP ONE (22:31)
[2017-05-03] MEDS ORDERED: FENTANYL CITRATE INJ 50 MCG/1 ML 2 ML VIAL ONE (22:32)
[2017-05-03] MEDS ORDERED: FENTANYL 2MCG/ML ROPIV 1.25MG/ML 100ML BAG EPI ONE (22:32)
[2017-05-03] MEDS: LACTATED RINGER'S 1000ML 1,000 ML IV SCH (23:24)
[2017-05-03] MEDS ORDERED: LACTATED RINGER'S 1000ML 500 ML IV PRN (23:35)
[2017-05-03] MEDS ORDERED: NALOXONE HCL INJ 1 MG in SODIUM CHLORIDE 0.9% 1000ML 1,000 ML IV PRN (23:35)
[2017-05-03] MEDS ORDERED: NALBUPHINE HCL INJ 10 MG/ML AMP IV PRN (23:45)
[2017-05-03] MEDS ORDERED: FENTANYL 2MCG/ML ROPIV 1.25MG/ML 100ML BAG EPI PRN (23:45)
[2017-05-03] MEDS ORDERED: EpHEDrine SULFATE INJ 50 MG/ML AMP IV PRN (23:45)
[2017-05-03] MEDS ORDERED: DiphenhydrAMINE HCL 50 MG/ML VIAL IV PRN (23:45)
[2017-05-03] MEDS ORDERED: NALOXONE HCL INJ 0.4 MG/1 ML VIAL/CARP IV PRN (23:45)
[2017-05-03] MEDS ORDERED: ONDANSETRON INJ 2 MG/ML 2 ML VIAL IV PRN (23:45)
[2017-05-04] MEDS: LACTATED RINGER'S 1000ML 1,000 ML IV SCH (01:16)
[2017-05-04] MEDS ORDERED: OXYTOCIN 30 UNITS/500ML NSS IV ONE (03:38)
[2017-05-04] MEDS ORDERED: LACTATED RINGER'S 1000ML 1,000 ML IV SCH (03:51)
--- NOTE | 2017-05-04 03:56 | Vaginal Delivery Summary ---
Vaginal Delivery Summary Delivery Note live male over intact perineum CINDI Apgars 8/9. Delayed cord clamping followed by cord blood and spontaneous vaginal delivery of placenta. No tears. EBL 200 ml. Final sponge and instrument count are correct. Mom and baby stable.
[2017-05-04] MEDS ORDERED: SUPERCREAM 0.870 % 15GM JAR EXT PRN (04:00)
[2017-05-04] MEDS ORDERED: OXYTOCIN 30 UNITS/500ML NSS IV PRN (04:00)
[2017-05-04] MEDS ORDERED: HYDROCORTISONE ACETATE 25 MG SUPP PR PRN (04:00)
[2017-05-04] MEDS ORDERED: LANOLIN OINT EXT PRN (04:00)
[2017-05-04] MEDS ORDERED: BENZOCAINE 20% AER SPR 82.5 GM CAN EXT PRN (04:00)
[2017-05-04] MEDS: ACETAMINOPHEN 325 MG TAB PO PRN ×2 (04:49→20:36)
[2017-05-04 07:40] VITALS: BP 112/74; PULSE 102; TEMP 36.9; O2SAT 98
[2017-05-04] MEDS: PRENATAL VITAMIN TAB PO SCH (08:41)
[2017-05-04] MEDS: DOCUSATE SODIUM 100 MG CAP PO SCH ×2 (08:41→19:35)
[2017-05-04] MEDS: FERROUS SULFATE 325 MG TAB PO SCH (08:41)
[2017-05-04] MEDS: IBUPROFEN 600 MG TAB PO PRN ×3 (08:42→16:59)
--- NOTE | 2017-05-04 09:45 | Anesthesia Procedure Note ---
Anesthesia Epidural Removal Nt Date & Time May 04, 2017 at 09:45 Vital Signs Pain Intensity: 4.0 Vital Signs Past 12 Hours Date Time Temp Pulse Resp B/P (MAP) Pulse Ox O2 Delivery O2 Flow Rate FiO2 05/04/17 07:40 36.9 102 18 112/74 (87) 98 Room Air 05/04/17 07:40 Room Air Notes Mental Status: alert / awake / arousable, participated in evaluation Nausea / Vomiting: adequately controlled Pain: adequately controlled Airway Patency, RR, SpO2: stable & adequate BP & HR: stable & adequate Hydration State: stable & adequate Neuraxial Anesthesia: was administered Anesthetic Complications: no major complications apparent, pt satisfied with anesthetic care Epidural: removed without complications, with tip intact
[2017-05-04 12:30] VITALS: BP 120/83; PULSE 88; TEMP 37.1; O2SAT 98
[2017-05-04 15:45] VITALS: BP 120/81; PULSE 90; TEMP 36.9; O2SAT 96
[2017-05-04 19:30] VITALS: BP 121/87; PULSE 100; TEMP 36.9; O2SAT 97
[2017-05-04 20:30] VITALS: BP 141/91; PULSE 84; PULSE 93; TEMP 36.5; O2SAT 98
[2017-05-04 23:15] VITALS: BP 106/73; PULSE 86; TEMP 36.5; O2SAT 97
[2017-05-05 03:00] VITALS: BP 99/65; PULSE 80; TEMP 36.5; O2SAT 98
[2017-05-05] MEDS: IBUPROFEN 600 MG TAB PO PRN ×2 (04:01→12:14)
[2017-05-05 07:48] LABS: HEMATOCRIT 34.3 % (37-47)
[2017-05-05 08:00] VITALS: BP 106/75; PULSE 80; TEMP 36.5
[2017-05-05] MEDS: ACETAMINOPHEN 325 MG TAB PO PRN (08:01)
[2017-05-05] MEDS: PRENATAL VITAMIN TAB PO SCH (08:01)
[2017-05-05] MEDS: DOCUSATE SODIUM 100 MG CAP PO SCH (08:01)
[2017-05-05] MEDS: FERROUS SULFATE 325 MG TAB PO SCH (08:01)
[2017-05-05] MEDS ORDERED: MTR600X PO (08:19)
--- NOTE | 2017-05-05 08:20 | Discharge Instructions ---
Discharge Instructions Date of Service May 05, 2017. Admission Reason for Admission: Check Rupture Discharge Discharge Diagnosis / Problem: term delivered Discharge Goals Goal(s): Routine recovery after delivery Activity Recommendations Activity Limitations: as noted below Lifting Limitations: no more than 10 pounds Exercise/Sports Limitations: gradually increase as tolerated May Resume Sexual Activity: after follow-up appointment Shower/Bathe: no limitations . Instructions / Follow-Up Instructions / Follow-Up ACTIVITY RECOMMENDATIONS: * Gradual return to full activity over the next 2-3 weeks. * No lifting - nothing heavier than baby over the next 2-3 weeks. * Do not engage in vigorous exercise, sexual activity or sports until cleared by your physician. * Do not drive or operate any motorized equipment until cleared by your physician. * You may shower/bathe daily. BREAST CARE: If you are not breast feeding: * Wear a supportive bra 24 hours a day for one to two weeks. * Avoid stimulating your breasts and nipples as much as possible during the first few weeks after delivery. * When taking a shower, have the warm water hit your back, not breasts. * When your breasts feel full, apply ice packs. Usually three to four times a day helps ease the discomfort. * Take a mild pain medication (Tylenol/Motrin) when you are uncomfortable. If breast feeding: * Use breast milk to lubricate nipples. Lansinoh cream may be used for sore nipples. You do not need to remove cream prior to breast feeding. If using a different brand of cream, check the label for directions regarding removal of cream prior to nursing. * Wear a supportive bra. * If having problems with breasts or breast feeding, call a outside solar sales consultant or your health care provider. EPISIOTOMY CARE: After delivery, if you have an episiotomy (stitches), the following steps will ease discomfort and aid healing. * For the first 24 hours after delivery, place ice packs next to your episiotomy to help reduce swelling. * After the first 24 hour-period, sitz baths, either portable or in the tub, are suggested. A shower with a shower arm sprayed over the episiotomy may be comforting. * Judith care should be done after each voiding and bowel movement. Squirt warm water from a plastic bottle over the perineum (region of the body between the anus and urinary opening) and pat dry. * Use Dermoplast to ease discomfort. Shake container. [place] directly over the episiotomy. * Place a Tucks on a clean sanitary pad next to your episiotomy. OVER THE COUNTER MEDICATION: * For discomfort or pain, you may use Acetaminophen (Tylenol), Ibuprofen (Advil ), or Naproxen (Aleve) following the package directions. * For constipation you may use Colace following the package directions. SPECIAL CARE INSTRUCTIONS: When you are discharged from the hospital, it is important for you to follow the instructions listed below: * During the first week at home, you should be able to care for yourself and your baby. In addition, the usual light household activities are encouraged. * Limit your activities to the way you feel. Do not try to clean the house or move furniture. Be sensible. * If you actively engage in sports and have done so up until the time of your delivery, you may resume these activities as soon as you feel able. This may take up to one month or even longer. Use good judgment. * Continue to take your vitamins for at least six weeks after the of your baby. * Your diet need not be limited unless you were on a special diet before your delivery. Breast-feeding mothers need around 2500 calories per day and at least 64-80 ounces of fluid per day (8 to 10 glasses). * You should eat foods from the four major food groups. Crash diets or fad diets are to be avoided. Eating lean meats, fresh fruits and vegetables, low-fat dairy products, high fiber foods and a regular exercise program, will help you get back to your pre- weight without putting your health at risk. * Constipation is sometimes a problem after delivery. Take a mild laxative as needed. If breast feeding, Milk of Magnesia is acceptable to use. You may use a suppository or Fleets enema if no episiotomy. * A daily shower or tub bath is suggested. Be sure to thoroughly and gently dry the perineum. * A bloody vaginal discharge will usually continue until around four weeks post . A small amount of bleeding may continue for as long as six weeks. Vaginal discharge changes from the bright red bleeding after delivery to pink then brownish and finally yellowish-pink before becoming white and disappearing. * Bleeding may increase with activity. Your first period may come in 4-8 weeks. If you are breast feeding, your period may be delayed even longer. * [place] (sex) can begin whenever both you and your partner feel comfortable and do not have any form of genital infection. It is recommended that you wait until after your return appointment and discuss with your physician. If you have questions, please talk to your health care practitioner. A condom should be used to prevent infection and . * Foreplay, gentle intercourse and lubrication is very important the first several times to prevent pain. A water-based lubricant such as K-Y jelly or Astroglide may be used. * Tampons may be used six weeks after delivery. * Douching should be avoided for 6 weeks after delivery. * If you have RH negative blood and your baby is RH positive, you will receive RHOGAM by injection prior to discharge. The nurse will give you a card to keep with you that has the date and place that you received RHOGAM after delivery. * During your care, you had a Rubella screen done to check for the presence of rubella antibodies in your blood. If your test was negative, you will receive a Rubella vaccine prior to discharge. This vaccine may cause a fever, soreness at the injection site and flu-like symptoms. If these symptoms persist, notify your health care practitioner. is not advised for three months after a Rubella vaccine. There is a higher chance of having a baby with defects if conceived within three months of getting the vaccine. * If you were discharged 24 hours from delivery or before 48 hours: Visiting nurses will come to your home 48 hours after discharge to assess you and your baby. The visiting nurse will meet with you while you are in the hospital to arrange a time and get directions to your home. * Verbalizes understanding of car seat law as reviewed with patient nursing. * Car Seat hand-out given and reviewed with patient by nursing. * Shaken baby information reviewed with patient by nursing. Call you doctor if: * Heavy bleeding (saturating several pads an hour) or passing clots the size of your fist. * A fever >101 degrees F (38.3 degrees C) on two occasions four hours apart and/or chills. * Unusual pain in the pelvic or vaginal areas. * "Baby Blues" lasting longer than two weeks. If you have any questions or concerns, call your health care practitioner at . FOLLOW-UP VISIT: * Please call the office at to schedule a 6 week examination. It is important you keep this appointment. * It is important for you to make arrangements for either yearly or twice yearly check-ups thereafter. Current Hospital Diet Patient's current hospital diet: Regular OB Diet Discharge Diet Recommended Diet: Regular OB Diet Fluid Restriction: None Pending Studies Studies pending at discharge: no Medical Emergencies . Who to Call and When: Medical Emergencies: If at any time you feel your situation is an emergency, please call 911 immediately. . Non-Emergent Contact Non-Emergency issues call your: Primary Care Provider . . "Provider Documentation" section prepared by Eloy Elizondo. . VTE Core Measure Inpt VTE Proph given/why not?: Treatment not indicated
--- NOTE | 2017-05-05 08:21 | OB/GYN Progress Note ---
[employer] Progress Note Date of Service May 05, 2017. Subjective conversation w/ patient, physical exam Ambulation: ambulating normally Voiding: no voiding problems Passing Gas: Yes Lochia: Small Feeding Type: Breast Feeding Objective Vital Signs Date Time Temp Pulse Resp B/P (MAP) Pulse Ox O2 Delivery O2 Flow Rate FiO2 05/05/17 03:00 36.5 80 18 99/65 (76) 98 Room Air 05/04/17 23:15 97 Room Air 05/04/17 23:15 36.5 86 18 106/73 (84) 97 Room Air 05/04/17 20:30 36.5 93 20 141/91 (108) 98 84 05/04/17 19:30 36.9 100 18 121/87 (98) 97 Room Air 05/04/17 15:45 36.9 90 18 120/81 (94) 96 Room Air 05/04/17 15:45 Room Air 05/04/17 12:30 37.1 88 20 120/83 (95) 98 Room Air Physical Exam General Appearance: WELL-APPEARING, NO APPARENT DISTRESS Abdomen: non tender, soft Fundus: Firm Extremities: non-tender, normal inspection, no pedal edema Laboratory Results Last 24 Hours Test 05/05/17 07:28 Hemoglobin 11.0 g/dL Hematocrit 34.3 % Assessment and Plan Post- Day Number: 1 Continue Routine Care: discharged
[2017-05-05] MEDS ORDERED: MEASLES, MUMPS & RUBELLA VIRUS VIAL SQ. ONE (09:00)
[2017-05-05] MEDS ORDERED: DIPHTHERIA/TETANUS/PERTUSSIS 0.5 ML SYR/VIAL IM. ONE (09:00)
[2017-05-05 13:55] VITALS: BP_DIAS 75; PULSE 80; TEMP 36.5
[2017-05-05] MEDS ORDERED: BISACODYL 5 MG TABEC PO SCH (20:00)
[2017-05-06] MEDS ORDERED: BISACODYL 10 MG SUPP PR PRN (07:00)
== END 2017-05-05 13:55 | disposition home or self-care (01) | DRG 775 ==
LOC: C.LD 20:02 → C.OPB 20:02 → C.LD 20:34 → C.OPB 20:34 → C.OBG 05-04 06:38
PROVIDERS: ADMIT Obstetrics & Gynecology; ATTEND Obstetrics & Gynecology
PROC: 10E0XZZ Delivery of Products of Conception, External Approach (ICD-10-PCS; principal; 2017-05-04)
DX: O80 Encounter for full-term uncomplicated delivery (principal); Z3A.38 38 weeks gestation of pregnancy; Z37.0 Single live birth